=== PATIENT | male | born 1980 | race American Indian/Alaskan Native ===

== ENCOUNTER 2024-02-12 09:51 | Emergency (ER) | payer OTHER ==
[~2024-02-12] VITALS: Ht 170.2 cm; Wt 89.6 kg
[~2024-02-12 09:51] MED LIST: CYCLOBENZAPRINE10 MG PO; IBUPROFEN600 MG PO; LIDODERM700 MG TOP; NAPROXEN500 MG PO; NORCO 5-325 TA1 EACH PO; VALIUM5 MG PO
--- OUTSIDE RECORDS SUMMARY | 2024-02-12 09:53 | XMS ---
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 Randy has no Care Guidelines for this patient. Duc VISIT COUNT (12 MO.) [address] [place] [id number] BAR[place] [place] TOTAL 21 NOTE: Visits indicate total known visits. 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 [place] [facility] DIAGNOSES: - Cutaneous abscess of left upper limb [facility]23 [facility] DIAGNOSES: - Cutaneous abscess of left upper limb 08/21/2023 17:01 [facility] [place] [facility] DIAGNOSES: - Low back pain, unspecified 08/04/2023 18:03 [facility] [place] [facility] DIAGNOSES: - Radiculopathy, lumbar region 07/28/2023 18:43 [facility] [place] TYPE: Emergency DIAGNOSES: - Candidal stomatitis - Dermatitis, unspecified - Dorsalgia, unspecified 07/18/2023 14:24 [facility] [place] TYPE: Emergency DIAGNOSES: - Low back pain, unspecified - Other chronic pain - Radiculopathy, lumbar region - Sciatica, right side 07/09/2023 17:28 [facility] [place] TYPE: Emergency DIAGNOSES: - Intervertebral disc disorders with radiculopathy, lumbar region - Low back pain, unspecified - Other chronic pain 07/04/2023 14:31 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 [place] TYPE: Emergency DIAGNOSES: - Intervertebral disc disorders with radiculopathy, lumbar region - Low back pain, unspecified - Other chronic pain 03/17/2023 20:14 [facility] [place] TYPE: Emergency DIAGNOSES: - Low back pain, unspecified 03/15/2023 22:[facility] DIAGNOSES: - Dorsalgia, unspecified - Low back pain, unspecified Plus 1 More Visit INPATIENT VISIT TRACKING (12 MO.) No inpatient visits to display in this time frame [id number]
[2024-02-12] MEDS ORDERED: diazePAM 10 MG/2 ML SYR IV ONE (10:30)
[2024-02-12] MEDS ORDERED: KETOROLAC TROMETHAMINE 30 MG/ML VIAL IV ONE (10:30)
[2024-02-12] MEDS ORDERED: LIDOCAINE HCL 4% 1 EACH PATCH TD ONE (10:30)
[2024-02-12] MEDS ORDERED: KETOROLAC TROME10 MG PO (11:34)
[2024-02-12] MEDS ORDERED: VALIUM5 MG PO (11:34)
[2024-02-12] MEDS ORDERED: LIDODERM1 EACH TOP (11:34)
[2024-02-12 11:48] VITALS: BP 116/86
[2024-02-12] MEDS ORDERED: LIDOCAINE PATCH REMOVAL 1 EA TD SCH (21:00)
== END 2024-02-12 11:48 | disposition home or self-care (01) ==
LOC: ED 09:51
DX: M54.50 Low back pain, unspecified (principal); G89.29 Other chronic pain; F17.200 Nicotine dependence, unspecified, uncomplicated; Z91.030 Bee allergy status; Z91.018 Allergy to other foods
CPT/HCPCS: 96374; 96375; 99283-25; A9270; J1885; J3360

== ENCOUNTER 2024-10-28 16:49 | Emergency (ER) | payer OTHER ==
[~2024-10-28] VITALS: Ht 170.2 cm; Wt 88.5 kg
--- OUTSIDE RECORDS SUMMARY | ~2024-10-28 | XMS | Continuity of Care Document ---
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 Encounters No information. Functional Status No information. Immunizations No information. Medications No information. Problems + + + + | date | description | facility | + + + + | 2024-10-10 23:23:28 | Muscle Pain | [facility] | | | | Center | + + + + | 2024-10-11 01:38:40 | Muscle Pain | [facility] | | | | Center | + + + + | 2024-10-11 01:40:13 | Muscle Pain | [facility] | | | | Center | + + + + | 2024-10-11 01:45:15 | Torticollis | [facility] | | | | Center | + + + + | 2024-10-11 01:45:56 | Torticollis | [facility] | | | | Center | + + + + | 2024-10-11 01:59:16 | Torticollis | [facility] | | | | Center | + + + + | 2024-10-14 16:18:26 | Torticollis | [facility] | | | | Center | + + + + | 2024-10-14 16:19:05 | Torticollis | [facility] | | | | Center | + + + + Procedures No information. Results/Labs No information. Social History +--------+ + + | date | description | facility | +--------+ + + Vital Signs No information."
[~2024-10-28 16:49] MED LIST changes: +KETOROLAC TROME10 MG PO; +LIDODERM1 EACH TOP
--- OUTSIDE RECORDS SUMMARY | 2024-10-28 16:56 | XMS ---
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 Randy has no Care Guidelines for this patient. ERuthie VISIT COUNT (12 MO.) 8 [facility] 2 [facility] 2 [facility] 1 [facility] Robison 1 [facility] 1 [facility] 1 [facility]. TOTAL 16 NOTE: Visits indicate total known visits. ED/UCC VISIT TRACKING (12 MO.) 10/28/2024 16:50 [facility] [place] TYPE: Emergency COMPLAINT: - WOUND VAC PROBLEM 10/24/2024 23:13 [facility] [place] TYPE: Emergency COMPLAINT: - J98.51 DIAGNOSES: - Cellulitis of trunk, unspecified - Cutaneous abscess of trunk, unspecified - Mediastinitis - T/Infection 10/16/2024 16:49 [facility] [place] TYPE: Emergency COMPLAINT: - L03.313 DIAGNOSES: - Cellulitis of chest wall - shoulder pain 10/15/2024 01:28 [facility] [place] TYPE: Emergency COMPLAINT: - "radiating pain spreading from shoulders to chest" DIAGNOSES: - Contusion of right front wall of thorax, initial encounter - Contusion of unspecified front wall of thorax, initial encounter - Other chest pain - Strain of muscle and tendon of front wall of thorax, initial encounter - "radiating pain spreading from shoulders to chest" - Chest Injury 10/13/2024 14:11 [facility] [place] TYPE: Emergency COMPLAINT: - Neck and shoulder pain DIAGNOSES: - Unspecified injury of right shoulder and upper arm, initial encounter - Neck and shoulder pain - Shoulder and Upper back pain 10/10/2024 23:14 [facility] [place] TYPE: Emergency DIAGNOSES: - Torticollis - Muscle Pain - Shoulder Pain 06/17/2024 16:59 [facility] [place] TYPE: Emergency DIAGNOSES: - Candidal stomatitis - Lumbago with sciatica, unspecified side - Other chronic pain - back pain 06/08/2024 13:49 [facility] [place] TYPE: Emergency DIAGNOSES: - Low back pain, unspecified - Other chronic pain 06/06/2024 10:36 [facility] [place] TYPE: Emergency DIAGNOSES: - Low back pain, unspecified - Radiculopathy, lumbar region - Strain of muscle, fascia and tendon of lower back, initial encounter 04/23/2024 22:05 [facility] [place] TYPE: Emergency DIAGNOSES: - Cellulitis of left upper limb 03/14/2024 11:18 [facility] [place] TYPE: Emergency DIAGNOSES: - Dorsalgia, unspecified - Radiculopathy, lumbar region 02/25/2024 13:04 [facility] [place] TYPE: Emergency DIAGNOSES: - Cellulitis of left finger - Male erectile dysfunction, unspecified - Pruritus, unspecified 02/12/2024 09:[address] 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 - Other chronic pain - Personal history of other specified conditions - Pruritus, unspecified - Spinal stenosis, lumbar region without neurogenic claudication 11[facility]15/2023 [facility] [place] [facility] DIAGNOSES: - Low back pain, unspecified INPATIENT VISIT TRACKING (12 MO.) 10/24/2024 23:13 [facility] [place] TYPE: Inpatient COMPLAINT: - J98.51 DIAGNOSES: - Cellulitis of chest wall - Cellulitis of trunk, unspecified - Cutaneous abscess of trunk, unspecified - Mediastinitis - Pyogenic arthritis, unspecified 10/16/2024 22:52 [facility] [place] TYPE: [facility]ov[facility] Care Unit COMPLAINT: - J98.51 DIAGNOSES: - Mediastinitis - Chest wall cellulitis [id number]
[2024-10-28 18:44] VITALS: BP 130/80
== END 2024-10-28 18:45 | disposition home or self-care (01) ==
LOC: ED 16:49
DX: T85.618A Breakdown (mechanical) of other specified internal prosthetic devices, implants and grafts, initial encounter (principal); Z48.00 Encounter for change or removal of nonsurgical wound dressing; F17.200 Nicotine dependence, unspecified, uncomplicated; Z91.018 Allergy to other foods
CPT/HCPCS: 99282